=== PATIENT | female | born 1995 | race Caucasian/White ===

== ENCOUNTER 2016-02-24 05:33 | Emergency (ER) | payer OTHER ==
[~2016-02-24] VITALS: Ht 172.7 cm; Wt 77.3 kg
[~2016-02-24 05:33] MED LIST: CEPHALEXIN500 M1 PO
[2016-02-24 05:38] VITALS: TEMP 96.8
[2016-02-24] MEDS ORDERED: NORCO 325 MG-51 TAB PO (07:17)
[2016-02-24 08:27] LABS: ADJUSTED CALCIUM 9.6 mg/dL (8.4-10.2); ALBUMIN 4.1 gm/dL (3.5-5.0); BILIRUBIN,TOTAL 0.4 mg/dL (0.0-1.0); CALCIUM 9.7 mg/dL (8.4-10.2); CREATININE, serum 0.67 mg/dL (0.52-1.25); TOTAL PROTEIN 7.4 gm/dL (6.4-8.2)
[2016-02-24 08:50] VITALS: BP 97/70; PULSE 80
[2016-02-25] MEDS ORDERED: ZOFRAN ODT4 MG PO (17:48)
== END 2016-02-24 08:59 | disposition home or self-care (01) ==
LOC: COL.ER 05:33
PROVIDERS: Emergency Medicine
DX: S16.1XXA Strain of muscle, fascia and tendon at neck level, initial encounter (principal); S20.411A Abrasion of right back wall of thorax, initial encounter; S80.811A Abrasion, right lower leg, initial encounter; V49.88XA Car occupant (driver) (passenger) injured in other specified transport accidents, initial encounter; Y92.488 Other paved roadways as the place of occurrence of the external cause
CPT/HCPCS: J2405; J3010; J7030; Q9967

== ENCOUNTER 2016-02-25 17:19 | Emergency (ER) | payer OTHER ==
[~2016-02-25] VITALS: Ht 152.4 cm; Wt 77.3 kg
[~2016-02-25 17:19] MED LIST changes: +NORCO 325 MG-51 TAB PO
[2016-02-25 17:21] VITALS: BP 113/70; TEMP 98.7
[2016-02-25] MEDS ORDERED: ZOFRAN ODT4 MG PO (17:48)
[2016-02-25 17:55] VITALS: PULSE 79
== END 2016-02-25 17:57 | disposition home or self-care (01) ==
LOC: COL.ER 17:19
DX: F07.81 Postconcussional syndrome (principal)

== ENCOUNTER 2016-06-06 06:03 | Emergency (ER) | payer BC, OTHER ==
[~2016-06-06] VITALS: Ht 172.7 cm; Wt 77.3 kg
[~2016-06-06 06:03] MED LIST changes: +ZOFRAN ODT4 MG PO
[2016-06-06 06:05] VITALS: BP 93/64; PULSE 101; TEMP 98.3
[2016-06-06] MEDS ORDERED: ZOFRAN8 MG PO (06:57)
[2016-06-06] MEDS ORDERED: ULTRAM 50MG TAB50 MG PO (06:57)
== END 2016-06-06 07:24 | disposition home or self-care (01) ==
LOC: COL.ER 06:03
DX: J06.9 Acute upper respiratory infection, unspecified (principal); R11.10 Vomiting, unspecified

== ENCOUNTER 2016-08-23 08:19 | Emergency (ER) | payer BC, OTHER ==
[~2016-08-23] VITALS: Ht 172.7 cm; Wt 72.7 kg
[~2016-08-23 08:19] MED LIST changes: +ULTRAM 50MG TAB50 MG PO; +ZOFRAN8 MG PO
[2016-08-23 09:37] LABS: HEMATOCRIT 42.4 % (37.0-47.0); HEMOGLOBIN 14.8 g/dl (12.5-16.0); MEAN CELL VOLUME 83 fl (80.0-100.0); MEAN CORPUSCULAR HEMOGLOBIN 29 pg (27.0-31.0); MEAN CORPUSCULAR HGB CONC 35 g/dl (33.0-37.0); MEAN PLATELET VOLUME 11.7 fl (7.4-10.4); PLATELET COUNT 216 K/mm3 (130-400); RED BLOOD COUNT 5.12 M/mm3 (4.10-5.30); REDCELL DISTRIBUTION WIDTH-CV 12.4 % (11.5-14.5); WHITE BLOOD COUNT 11.2 K/mm3 (4.8-10.8)
[2016-08-23 10:31] LABS: ADJUSTED CALCIUM 9.2 mg/dL (8.4-10.2); ALBUMIN 4.3 gm/dL (3.5-5.0); BILIRUBIN,TOTAL 0.8 mg/dL (0.0-1.0); CALCIUM 9.4 mg/dL (8.4-10.2); CREATININE, serum 0.79 mg/dL (0.52-1.25); POTASSIUM 4.1 mmol/L (3.4-5.0); TOTAL PROTEIN 7.1 gm/dL (6.4-8.2)
[2016-08-23] MEDS ORDERED: ZOFRAN 4MG T4 MG/TAB PO (10:41)
[2016-08-23 11:12] VITALS: BP 134/86; PULSE 84; TEMP 98
== END 2016-08-23 11:17 | disposition home or self-care (01) ==
LOC: COL.ER 08:19
PROVIDERS: Family Medicine; Physician Assistant Medical
DX: S00.83XA Contusion of other part of head, initial encounter (principal); S00.33XA Contusion of nose, initial encounter; S30.811A Abrasion of abdominal wall, initial encounter; S50.811A Abrasion of right forearm, initial encounter; R21 Rash and other nonspecific skin eruption; R10.11 Right upper quadrant pain; V47.5XXA Car driver injured in collision with fixed or stationary object in traffic accident, initial encounter; W22.11XA Striking against or struck by driver side automobile airbag, initial encounter; Y92.414 Local residential or business street as the place of occurrence of the external cause; R40.2412 Glasgow coma scale score 13-15, at arrival to emergency department
CPT/HCPCS: J2270; J2405; J7030; Q9967

== ENCOUNTER 2016-11-08 07:35 | Emergency (ER) | payer BC ==
[~2016-11-08] VITALS: Ht 172.7 cm; Wt 72.7 kg
[~2016-11-08 07:35] MED LIST changes: +ZOFRAN 4MG T4 MG/TAB PO
[2016-11-08 07:37] VITALS: TEMP 97.7
[2016-11-08] MEDS ORDERED: PRENATAL MVI (08:38)
[2016-11-08 09:32] LABS: HEMATOCRIT 40.8 % (37.0-47.0); HEMOGLOBIN 14.3 g/dl (12.5-16.0); MEAN CELL VOLUME 82 fl (80.0-100.0); MEAN CORPUSCULAR HEMOGLOBIN 29 pg (27.0-31.0); MEAN CORPUSCULAR HGB CONC 35 g/dl (33.0-37.0); MEAN PLATELET VOLUME 11.3 fl (7.4-10.4); PLATELET COUNT 212 K/mm3 (130-400); RED BLOOD COUNT 4.98 M/mm3 (4.10-5.30); REDCELL DISTRIBUTION WIDTH-CV 12.2 % (11.5-14.5); WHITE BLOOD COUNT 11.8 K/mm3 (4.8-10.8)
[2016-11-08 09:38] LABS: ADD PATHOLOGY DIFF REVIEW NO
[2016-11-08 09:49] LABS: PH 6 (5-8); URINE APPEARANCE Clear; URINE BACTERIA Rare /hpf; URINE BILIRUBIN Negative (NEGATIVE); URINE BLOOD 1+ (NEGATIVE); URINE COLOR Yellow; URINE GLUCOSE 3+ (NEGATIVE); URINE KETONE 2+ (NEGATIVE); URINE RBC 0-2 /hpf; URINE UROBILINOGEN Negative (NEGATIVE); URINE WBC 0-2 /hpf
[2016-11-08 09:51] LABS: ALBUMIN 4.5 gm/dL (3.5-5.0); BILIRUBIN,TOTAL 0.9 mg/dL (0.0-1.0); CALCIUM 9.4 mg/dL (8.4-10.2); CREATININE, serum 0.81 mg/dL (0.52-1.25); POTASSIUM 4.7 mmol/L (3.4-5.0); TOTAL PROTEIN 7.3 gm/dL (6.4-8.2)
[2016-11-08 09:58] LABS: AMPHETAMINE URINE NEGATIVE; BARBITURATES URINE NEGATIVE; BENZODIAZEPINES URINE NEGATIVE; BUPRENORPHINE URINE NEGATIVE; METHADONE URINE NEGATIVE; OPIATES URINE NEGATIVE; OXYCODONE URINE NEGATIVE; PHENCYCLIDINE URINE NEGATIVE; PROPOXYPHENE URINE NEGATIVE; THC CANNABINOIDS URINE POSITIVE
[2016-11-08 10:00] LABS: PROLACTIN 52.2 ng/mL (3.0-18.6)
[2016-11-08 10:08] LABS: BAND 10 % (0-10); METAMYELOCYTE 1 % (0-0); MYELOCYTE 1 % (0-0); NEUTROPHILS 85 % (42.0-75.2); TOTAL CELLS COUNTED 100
[2016-11-08 10:09] LABS: PLATELET ESTIMATE NORMAL (NORMAL)
[2016-11-08 10:46] VITALS: BP 146/60; PULSE 94
== END 2016-11-08 10:47 | disposition home or self-care (01) ==
LOC: COL.ER 07:35
PROVIDERS: Emergency Medicine; Physician Assistant
DX: O26.891 Other specified pregnancy related conditions, first trimester (principal); R56.9 Unspecified convulsions; O99.321 Drug use complicating pregnancy, first trimester; F12.10 Cannabis abuse, uncomplicated; Z3A.01 Less than 8 weeks gestation of pregnancy
CPT/HCPCS: J2405; J2550; J7030

== ENCOUNTER 2016-11-20 07:58 | Emergency (ER) | payer BC ==
[~2016-11-20] VITALS: Ht 172.7 cm; Wt 73.6 kg
[~2016-11-20 07:58] MED LIST changes: +PRENATAL MVI
[2016-11-20 08:00] VITALS: BP 128/62; PULSE 82; TEMP 97.9
[2016-11-20] MEDS ORDERED: PHENERGAN25 MG RC (08:22)
[2016-11-20] MEDS ORDERED: PROMETHAZINE12.5 M5 PO (08:22)
[2016-11-20 11:13] LABS: PH 6 (5-8); URINE APPEARANCE Hazy; URINE BACTERIA None Seen /hpf; URINE BILIRUBIN Negative (NEGATIVE); URINE BLOOD Negative (NEGATIVE); URINE COLOR Amber; URINE GLUCOSE Negative (NEGATIVE); URINE KETONE 2+ (NEGATIVE); URINE RBC 0-2 /hpf
== END 2016-11-20 11:30 | disposition home or self-care (01) ==
LOC: COL.ER 07:58
PROVIDERS: Physician Assistant
DX: O21.9 Vomiting of pregnancy, unspecified (principal); Z3A.01 Less than 8 weeks gestation of pregnancy
CPT/HCPCS: J2550; J7030